=== PATIENT | male | born 1990 | race Caucasian/White ===

== ENCOUNTER 2024-12-06 13:41 | Emergency (ER) | payer SELFPAY ==
[2024-12-06 13:43] VITALS: BP 130/89; PULSE 72; RESP 15; TEMP 36.6; O2SAT 100; BMI 22.1
--- NOTE | 2024-12-06 14:11 | EDS_ITS ---
HPI History of Present Illness Chief Complaint: Cellulitis Informant: patient Onset/Context/Timing Onset: Yesterday Context: Gradual Onset Timing: Continuous Quality: Itching Location: Right foot and ankle Worsened by: Wearing a sock Relieved by: Nothing Narrative Narrative: Patient presents with redness and swelling to his right foot that has been getting worse since yesterday. Patient states he believes he was bitten by an insect. Patient admits to some itching to his right foot and lower leg. Patient states his pain is worse whenever he wears a sock. Patient states nothing makes it better. Patient denies any paresthesias or weakness. Patient states the swelling has been getting progressively worse. Patient denies any fevers or chills. PFSH PFSH Medical History no medical history no medical history Home Medications ?Medication ?Instructions ?Recorded ?Last Taken ?Type cephalexin 500 mg capsule 500 mg PO Q6 #40 CAPSULES Unknown Rx Allergy/AdvReac Type Severity Reaction Status Date / Time No Known Allergies Allergy Verified 12/06/24 13:44 Social History (Updated 12/06/24 @ 14:[address] Diogo Gordon, DO) Smoking Status: Current every day smoker tobacco type: cigarettes alcohol intake: current substance use type: marijuana ROS ROS ED Constitutional Constitutional ED: Denies chills or fever(s) Eyes Eyes: Denies blurry vision or change in vision ENT ENT ED: Denies rhinorrhea or sore throat Cardiovascular Cardiovascular: Denies chest pain or palpitations Respiratory/Chest Respiratory/Chest: Denies cough or dyspnea Gastrointestinal Gastrointestinal: Denies nausea or vomiting Genitourinary Genitourinary ED: Denies dysuria or hematuria Musculoskeletal Musculoskeletal: Denies back pain or neck pain Integumentary Denies abscess or rash Neurologic Neurologic: Denies headache(s) or weakness Allergic/Immunologic Allergic/Immunologic ED: Denies mouth swelling or urticaria EXAM Physical Exam Const Vital Signs: 12/06/24 13:43 Temperature 97.9 F Temperature Source Oral Pulse Rate 72 Respiratory Rate 15 Blood Pressure 130/89 H Blood Pressure Mean 102 Pulse Ox 100 Oxygen Delivery Method Room Air Positive well nourished and well developed General Appearance ED: well developed and NAD HEENT Reports moist mucous membranes Neck supple and no JVD Extremity Extremity Narrative: There is edema, erythema, warmth over the dorsum of the right foot and lateral aspect of the right ankle and lower leg. There is no active discharge or drainage. There is no fluctuance. There is no evidence of any abscess. There is good range of motion of the right ankle. Pedal pulses are equal bilateral. Sensation was intact to light touch in all digits. Capillary refills less than 2 seconds in all digits. Neuro oriented x3, CN's II-XII intact bilaterally and no sensory deficits noted Sensorium / Orientation: alert Motor Exam: strength 5/5 throughout Psych mental status grossly normal MDM MDM MDM Narrative Medical decision making narrative: Patient was advised that this does appear to be cellulitis from the insect bite. Patient was given a dose of Keflex here. Patient was given a prescription for Keflex. Patient was instructed to keep the leg elevated. Patient was instructed to take Tylenol or ibuprofen as needed for pain or fevers. Patient was instructed to follow-up with his primary care physician in 5 to 7 days. Cheryl lawrence understood and was agreeable with the plan. All questions were answered. Discharge Plan Triage Chief Complaint: Cellulitis ED Provider: Diogo Gordon Dx/Rx/DC Orders Clinical Impression: Cellulitis, Tobacco use Instructions: ED Cellulitis Prescriptions: New cephalexin 500 mg capsule 500 mg PO Q6 Qty: 40 0RF Primary Care Provider: Care Physician,No Primary Referrals: Moody Martines MD [Med Staff - Senior Service Technician] - 5-7 Days Care Physician,No Primary [Primary Care Provider] - Print Language: Slovak Disposition Disposition: Home, Self Care
[2024-12-06 14:27] VITALS: BP 130/89; PULSE 72; RESP 15; TEMP 36.6; O2SAT 100
== END 2024-12-06 14:39 | disposition home or self-care (01) ==
LOC: ED 14:25
PROVIDERS: Emergency Provider Emergency Medicine; Visit Provider Emergency Medicine
DX: L03.115 Cellulitis of right lower limb (principal); S90.861A Insect bite (nonvenomous), right foot, initial encounter; W57.XXXA Bitten or stung by nonvenomous insect and other nonvenomous arthropods, initial encounter; F17.210 Nicotine dependence, cigarettes, uncomplicated
CPT/HCPCS: 99282